=== PATIENT | male | born 1945 | race Caucasian/White ===

== ENCOUNTER 2018-07-06 09:54 | Outpatient (CLI) | payer MEDICARE | END 2018-07-06 09:55 | disposition home or self-care (01) | LOC: SC 09:54 | PROVIDERS: ATTEND Internal Medicine Pulmonary Disease | DX: G47.33 Obstructive sleep apnea (adult) (pediatric) (principal) | CPT/HCPCS: 99203; G0463; 99212 ==

== ENCOUNTER 2018-10-14 20:25 | Outpatient (CLI) | payer MEDICARE | END 2018-10-14 20:26 | disposition home or self-care (01) | LOC: SC 20:25 | PROVIDERS: ATTEND Internal Medicine Pulmonary Disease | DX: G47.33 Obstructive sleep apnea (adult) (pediatric) (principal); G47.61 Periodic limb movement disorder | CPT/HCPCS: 95811 ==

== ENCOUNTER 2018-11-02 09:40 | Outpatient (CLI) | payer MEDICARE | END 2018-11-02 09:41 | disposition home or self-care (01) | LOC: SC 09:40 | PROVIDERS: ATTEND Nurse Practitioner Family | DX: G47.33 Obstructive sleep apnea (adult) (pediatric) (principal); G47.61 Periodic limb movement disorder | CPT/HCPCS: 99214; G0463; 99212 ==

== ENCOUNTER 2019-03-08 14:18 | Outpatient (CLI) | payer MEDICARE | END 2019-03-08 14:19 | disposition home or self-care (01) | LOC: SC 14:18 | PROVIDERS: ATTEND Internal Medicine Pulmonary Disease | DX: G47.33 Obstructive sleep apnea (adult) (pediatric) (principal) | CPT/HCPCS: 99213; G0463; 99212 ==

== ENCOUNTER 2019-07-28 08:01 | Outpatient (CLI) | payer MEDICARE ==
--- NOTE | 2019-07-28 14:54 | XRAY Report ---
Reason: COUGH, R05 Procedure Date: 07/28/2019 Accession Number: [id number] / [id number] Procedure: XRS - Chest 2 View X-Ray CPT Code: 37787 Final Report FULL RESULT: EXAM: CHEST RADIOGRAPHY EXAM DATE: 07/28/2019 08:13 AM. CLINICAL HISTORY: Cough COMPARISON: None. TECHNIQUE: 2 views. FINDINGS: Lungs/Pleura: No focal opacities evident. No pleural effusion. No pneumothorax. Normal volumes. Mediastinum: Heart and mediastinal contours are unremarkable. Other: None. IMPRESSION: No acute cardiopulmonary abnormality. [facility]
== END 2019-07-28 08:02 | disposition home or self-care (01) ==
LOC: DI.S 08:01
PROVIDERS: ATTEND Internal Medicine
DX: R05 Cough (principal)
CPT/HCPCS: 71046